=== PATIENT | male | born 1960 | race Hispanic/Latino ===

== ENCOUNTER 2016-07-29 09:19 | Day surgery (SDC) | payer SELFPAY ==
[~2016-07-29] VITALS: Ht 165.1 cm; Wt 83.9 kg
[~2016-07-29 09:19] MED LIST: ASPI-973 PO; CHOL10008 PO; GLPZ5T PO; LISI-567 PO; METF-778 PO; OMEP20CA11 PO; PRAV10TA2 PO
[2016-07-29 11:44] VITALS: BP 135/91; PULSE 75; RESP 14; O2SAT 95; O2SAT 96
[2016-07-29] MEDS ORDERED: 0.9% Sodium Chloride 1,000 ML IV PRN (12:00)
[2016-07-29] MEDS ORDERED: fentaNYL-PF 50 mCg/mL 2 mL Inj IVPUSH PRN (12:00)
[2016-07-29] MEDS ORDERED: Sodium Chloride LOK Flush 10 mL Syringe IV PRN (12:00)
[2016-07-29 12:27] VITALS: BP 104/72; PULSE 78; RESP 12; O2SAT 92
[2016-07-29 12:37] VITALS: BP 89/65; PULSE 69; RESP 14; O2SAT 95
[2016-07-29 12:47] VITALS: BP 118/76; PULSE 79; RESP 14; O2SAT 95
--- NOTE | 2016-07-29 14:36 | ENDO ---
[address] [address] ENDOSCOPY PROCEDURE PATIENT: FILEMON CEJA : 1960 MR#: [id number] ADMIT: 07/29/2016 JOB ID: [id number] DATE: 07/29/2016 TYPE OF OPERATION: Colonoscopy. PREOPERATIVE DIAGNOSIS(ES): Colorectal cancer screening. POSTOPERATIVE DIAGNOSIS(ES): Small internal hemorrhoids. ANESTHESIA: 1. Fentanyl 100 mcg. 2. Versed 5 mg IV administered. COMPLICATIONS: None. BLOOD LOSS: Minimal. DESCRIPTION OF PROCEDURE: After risks and benefits were explained to the patient, informed consent was obtained. After anesthesia administered, colonoscope was then inserted from the rectum to the cecum. Mucosa carefully examined. Prep of the patient was excellent. After procedure was done, the scope was withdrawn and the procedure terminated. FINDINGS: Upon inspection of the anus, no masses, hemorrhoids, ulcers or fissures that were seen. Throughout the entire examination, there were no polyps, masses or lesions. Retroflexion showed small internal hemorrhoids. IMPRESSION: Small internal hemorrhoids. RECOMMENDATIONS: 1. Stool softener as needed. 2. Repeat colonoscopy 10 years for colorectal cancer screening.
== END 2016-07-29 23:59 | disposition home or self-care (01) ==
LOC: END 09:19
PROVIDERS: ATTEND Internal Medicine Gastroenterology
DX: Z12.11 Encounter for screening for malignant neoplasm of colon (principal); K64.8 Other hemorrhoids; E11.9 Type 2 diabetes mellitus without complications; I10 Essential (primary) hypertension; K21.9 Gastro-esophageal reflux disease without esophagitis; Z79.84 Long term (current) use of oral hypoglycemic drugs; Z86.010 Personal history of colon polyps
CPT/HCPCS: G0105; G0500; J2250; J3010; J7030